=== PATIENT | female | born 1940 | race Caucasian/White ===

== ENCOUNTER 2016-05-30 14:35 | Inpatient (IN) | payer MEDICARE ==
[~2016-05-30] VITALS: Ht 167.6 cm; Wt 90.7 kg
[2016-05-30] MEDS ORDERED: ARICEPT5 MG PO (16:17)
[2016-05-30] MEDS ORDERED: KLONOPIN1 MG PO (16:17)
[2016-05-30] MEDS ORDERED: KLONOPIN0.5 MG PO (16:17)
[2016-05-30] MEDS ORDERED: CYMBALTA30 MG PO (16:18)
[2016-05-30] MEDS ORDERED: PEPCID20 MG PO (16:18)
[2016-05-30] MEDS ORDERED: NEURONTIN 400400 MG PO (16:19)
[2016-05-30] MEDS ORDERED: GLIMEPIRIDE1 MG PO (16:20)
[2016-05-30] MEDS ORDERED: ISOSORBIDE MONO30 M1 PO (16:22)
[2016-05-30] MEDS ORDERED: ACIDOPHILUS LAC1 CAP PO (16:23)
[2016-05-30] MEDS ORDERED: MELATONIN 3 MG1 TAB PO (16:24)
[2016-05-30] MEDS ORDERED: LISINOPRIL10 MG PO (16:24)
[2016-05-30] MEDS ORDERED: MOBIC7.5 MG PO (16:24)
[2016-05-30] MEDS ORDERED: MIRALAX17 GM PO (16:26)
[2016-05-30] MEDS ORDERED: SENNA PLUS TA1 UDTAB PO (16:26)
[2016-05-30] MEDS ORDERED: ZOCOR10 MG PO (16:27)
[2016-05-30] MEDS ORDERED: BUTRANS1 EAC1 TRANSDERM (16:28)
[2016-05-30] MEDS ORDERED: ACETAMINOPHEN500 M1 PO (16:29)
[2016-05-30] MEDS ORDERED: HYDROCODON-ACE1 EAC7 PO (16:30)
[2016-05-30] MEDS ORDERED: ULTRAM50 MG PO (16:31)
[2016-05-30] MEDS ORDERED: ZOFRAN4 MG PO (16:32)
[2016-05-30] MEDS ORDERED: PROAIR HFA8.5 GM INH (16:32)
--- NOTE | 2016-05-30 17:08 | NUR ---
PT WAS ADMITTED TO HALF-WAY FROM [facility] FOR INCREASED COMBATIVENSS. PT HITTING, KICKING, AND SPITTING ON STAFF AT [place]. CALLED PT'S SON ROXANNE SMITH WHO IS HER GUARDIAN, AND HE GAVE CONSENT FOR TREATMENT. CODE STATUS ADDRESSED AND PT IS A FULL CODE. [place] CODE STATUS IS INCORRECT PER SON. OXYGEN APPLIED TO PT NC 2 LITERS. SON REPORTED THAT THE PT FELL LAST NIGHT AT THE FACILITY. FALL PRECAUTIONS INITIATED. WILL CONTINUE TO MONITOR AND CONTINUE WITH PLAN OF CARE.
[2016-05-30 18:43] LABS: BASOPHILS 0.3 % (0.0-2.0); EOSINOPHILS 2.4 % (0-7); HEMATOCRIT 40.4 % (36.0-48.0); HEMOGLOBIN 11.7 g/dL (12-16); IMMATURE GRANULOCYTES 0.2 % (0-5); LYMPHOCYTES 27.9 % (15-50); MCH 29.7 pg (26.0-34.0); MCV 102.5 fL (80.0-100.0); MEAN PLATELET VOLUME 9.5 fL (7.4-10.4); MONOCYTES 9.6 % (2-11); NEUTROPHILS 59.6 % (40-80); PLATELET COUNT 196 10x3/uL (130-400); RBC 3.94 10x6/uL (4.00-5.40); RDW 12.7 % (11.5-14.5); WBC 6.2 10x3/uL (4.8-10.8)
[2016-05-30 18:55] LABS: HEMOGLOBIN A1C 7.5 % (4.8-6.0)
[2016-05-30 18:59] VITALS: BP 142/74
[2016-05-30 19:00] VITALS: BP 154/81
[2016-05-30 19:46] LABS: ALBUMIN 2.9 g/dL (3.4-5.0); BILIRUBIN - TOTAL 0.3 mg/dL (0.2-1.3); CALCIUM 9.2 mg/dL (8.5-10.1); CHOL - HDL RATIO 3.7 ratio (2.3-4.1); CREATININE - SERUM 0.8 mg/dL (0.6-1.3); PROTEIN - SERUM 6.6 g/dL (6.4-8.2); THYROID STIMULATING HORMONE 3.47 uIU/mL (0.36-3.74)
[2016-05-30 20:00] LABS: ANION GAP 1.8 mmol/L (8-16); CARBON DIOXIDE 48.1 mmol/L (21.0-32.0); POTASSIUM - SERUM 2.9 mmol/L (3.5-5.1)
[2016-05-30 21:25] VITALS: BP 154/81
--- NOTE | 2016-05-31 00:44 | NUR ---
B) Recieved wilnermarti in her room, alert and oriented X 3, sleeping on and off, calm and cooperative with assessment, I) Administered perscribed medications, PRN Abbott given for gereralized pain , R) Medication copliant, resting now quietly now, P) Continue plan of care, continue to monitor.
--- NOTE | 2016-05-31 01:55 | NUR ---
PATIENT GIVEN POTASIUM 40 mEQ PO FOR LOW POTASIUM.
[2016-05-31 06:55] LABS: CALCIUM 9.6 mg/dL (8.5-10.1); CREATININE - SERUM 0.8 mg/dL (0.6-1.3)
[2016-05-31 07:24] LABS: ANION GAP 0.7 mmol/L (8-16); CARBON DIOXIDE 48.8 mmol/L (21.0-32.0); POTASSIUM - SERUM 3.5 mmol/L (3.5-5.1)
[2016-05-31 08:30] VITALS: BP 132/56
--- NOTE | 2016-05-31 11:48 | NUR ---
Pt is alert and oriented to person, place. Not oriented to time or situation. Pt is negative, manipulative, helpless, hopeless this am. Didn't want to get out of bed stating "I'm sick". Medication given as ordered. Redirection given as needed. Will continue to monitor and continue plan of care.
[2016-05-31 12:33] LABS: APPEARANCE HAZY (CLEAR); BILIRUBIN NEGATIVE (NEGATIVE); COLOR YELLOW (YELLOW); GLUCOSE 1000 mg/dL (NEGATIVE); KETONE NEGATIVE (NEGATIVE); LEUKOCYTE ESTERASE 2+ (NEGATIVE); NITRITE NEGATIVE (NEGATIVE); PROTEIN NEGATIVE (NEGATIVE); SPECIFIC GRAVITY 1.015 (1.005-1.020); UROBILINOGEN NORMAL (NORMAL)
[2016-05-31 12:35] LABS: BACTERIA MODERATE /hpf (NONE SEEN); MUCUS <1+ /lpf (NONE SEEN); RED CELLS - URINE 0-5 /hpf (0-5); WHITE CELLS - URINE >50 /hpf (0-5)
[2016-05-31 15:22] VITALS: Ht 167.6 cm; Wt 90.7 kg
--- NOTE | 2016-05-31 15:35 | NUR ---
1437 pt sitting in wheelchair, agitated. Ativan 0.5mg po given. 1508 Pt complaining of bilateral foot pain. Scheduled Neurontin po given. 1530 Pt states "I want to go to bed. I stay in bed all the time at home. 24 hours because I'm in pain."
[2016-05-31 20:27] VITALS: BP 131/73
--- NOTE | 2016-05-31 23:00 | NUR ---
PRN ATIVAN O.5 MG GIVEN FOR ANXIETY AT 2300.
--- NOTE | 2016-06-01 03:54 | NUR ---
B) Recieved sitting in the day room, alert and oriented to self and hospital, attention seeking and helpless with a negitive aditude, I) Administered perscribed medications, redirected as needed, R) medication compliant, cooperative with care and assessment P) Continue plan of care.
[2016-06-01 05:16] LABS: RAPID PLASMA REAGIN Non Reactive (Non Reactive)
[2016-06-01 06:15] LABS: VITAMIN D 25 HYDROXY 17.8 ng/mL (30.0-100.0)
[2016-06-01 09:17] LABS: FOLATE (FOLIC ACID) - SERUM >20.0 ng/mL (>3.0)
[2016-06-01 09:40] VITALS: BP 132/68
--- NOTE | 2016-06-01 13:30 | NUR ---
B) PATIENT IS AWAKE AND SHE IS HAVING INTERMITTANT CONFUSION, SHE IS NEGATIVE AND SAYS WE ARE MISTREATING HER, SHE IS NOT HAPPY ABOUT ANYTHING. SHE REFUSES TO ROLL OR STAND OR HELP WITH ANY ASSIST FOR HERSELF. I) PROVIDE PRESCRIBED MEDS, REDIRECT TO A POSITIVE THOUGHT WITH EVERY NEGATIVE COMMENT. R) PATIENT IS COMPLIANT WITH MEDS. P) CONTINUE PLAN OF CARE.
--- NOTE | 2016-06-01 15:57 | NUR ---
C/O GENERALIZED PAIN /10. "WORST PAIN I'VE EVER FELT. ALSO C/O NAUSEA. PRN TRLENOL AND ZOFRAN ADMINISTERED PER ORDERS.
[2016-06-01 19:30] VITALS: BP 143/71
--- NOTE | 2016-06-02 04:08 | NUR ---
PATIENT RECIEVED IN 1136, LAYING ON THE BED. ORIENTED TO SELF, AND SITUATION. NO AGGRESSION, BUT SHOWING SOME AGITATION. CALM AND COMPLIANT WITH MEDICATION. BED LOW. SIDE RAILS UP X2. CONTINUE TO MONITOR
[2016-06-02 08:27] VITALS: BP 152/74
--- NOTE | 2016-06-02 09:42 | PSY ---
PATIENT NAME:ALIYAH SMITH MEDICAL RECORD: [id number] : 42 LOCATION:[facility] ADMISSION DATE: 05/30/16 ACCOUNT: [id number] PSYCHIATRIC EVALUATION DATE OF EVALUATION: 05/31/16 Initial Psychiatric Workup IDENTIFYING DATA: This is the first Group Home admission for this 75-year-old single white female. This patient is a resident of [facility]. HISTORY OF PRESENT ILLNESS: This patient had been exhibiting agitated behavior. She was kicking at staff's and spitting at them. Evidently, this agitated and combative behavior has been intermittent. She had recently been receiving routine pain medications, which the facility had tapered. The patient does have a number of medical comorbidities including COPD, hypertension, arthritis and GERD. She is being treated for depression and anxiety as well as early dementia. CURRENT MEDICATIONS: Included Aricept, Cymbalta and Klonopin. Because of worsening agitation and combativeness. The patient was admitted. PAST MEDICAL HISTORY: See above. ALLERGIES: THE PATIENT IS LISTED BEING ALLERGIC TO SULFONAMIDE ANTIBIOTICS AND ASPIRIN. The patient is evidently oxygen dependent. She does use supplemental oxygen at the present time. She also has a history of insulin-dependent diabetes mellitus. FAMILY HISTORY: Noncontributory. SOCIAL HISTORY: The patient is a longterm resident. She has a son that is involved in her care. There are no substance abuse issues that are noted. MENTAL STATUS: On exam, the patient is seated in a wheelchair. She is fairly cooperative. Mood is slightly anxious. Affect is brittle. Speech tends to be tangential. Content of thought is focused on somatic concerns. On sensorium testing, the patient is oriented to person, place, month, and year. Remote and intermediate recall seemed intact. Concentration is somewhat poor. DIAGNOSTIC IMPRESSION: AXIS I: Major depressive disorder with somatic features, possible early dementia. AXIS II: Deferred. AXIS III: Hypertension, gastroesophageal reflux disease, osteoarthritis, chronic obstructive pulmonary disease, type 1 diabetes. AXIS IV: Moderate. AXIS V: 36. PLAN: 1. We will adjust medications as indicated. 2. Supportive therapy. 3. Coordinate with referring facility and family regarding aftercare. TRANSINT:[id number] Voice Confirmation ID: [id number] DOCUMENT ID: [id number] ELODIA SHIPELY, ÁLVARO Anton MD at 0942 CC: [id number] DICTATION DATE: 05/31/16 1152 FILES SUPERVISOR: 05/31/16 1226 ADM IN [facility] [address] [id number]
--- NOTE | 2016-06-02 09:42 | PN ---
PATIENT:ALIYAH SMITH MEDICAL RECORD: [id number] LOCATION:[facility] ADMISSION DATE: 05/30/16 PROGRESS NOTE DATE OF SERVICE: 06/01/2016 SUBJECTIVE: No new complaint. OBJECTIVE: Staff reports the patient is rather attention-seeking, but poorly cooperative. She has to be redirected from time to time. She is tolerating her medications reasonably well. On exam, mood is somewhat irritable. Affect is shallow. Speech is tangential. Content of thought focuses only on somatic concerns. Sensorium shows no change. ASSESSMENT: No change in diagnosis. PLAN: 1. Maintain current medications. 2. Continue supportive therapy. TRANSINT:[id number] Voice Confirmation ID: [id number] DOCUMENT ID: [id number] ÁLVARO CLIFTON III, MD at 0942 CC: [id number] DICTATION DATE: 06/01/16 1303 HYDROGEN TREATER: 06/01/16 1557 ADM IN [place] [id number] [id number]
--- NOTE | 2016-06-02 13:32 | NUR ---
(B)RECEIVED PATIENT LAYING IN THE BED. ORIENTED TO SELF, DAY AND MONTH HOWEVER THOUGHT SHE WAS AT [facility]. RELATES "CRAZY HOUSE I GUESS." PATIENT IN DENIAL OF BEHAVIORS LEADING TO HOSPITALIZATION. O2 AT 2L/MIN PER NC IN USE. ASKING FOR A DIFFERENT CANNULA DUE TO THE ONE SHE HAS NOT STAYING IN. PATIENT HAS FREQUENT REQUEST FOR ASSISTANCE. (I)ADMINISTER MEDS AND MONITOR COMPLIANCE. MONITOR BEHAVIORS AND REDIRECT FOR SPITTING, KICKING AND HITTING AT STAFF. (R)MED COMPLIANT. NO AGGRESSIVE BEHAVIORS OBSERVED. CONTINUES TO LAY AND CALL FOR STAFF TO ASSIST WITH ALL CARE. (P)CONTIUE POC AND MAINTAIN FALL PRECAUTIONS.
[2016-06-02 19:30] VITALS: BP 131/62
--- NOTE | 2016-06-03 00:41 | NUR ---
B) Recieved patient in bed in the day area, alert and oriented to self. demanding at times, calm most of the time, cooperative with care, I) Administered perscribed medications, redirected as needed, R) Medication compliant, resting now quietly, P) Continue plan of care, continue to monitor.
[2016-06-03 07:00] VITALS: BP 168/74
--- NOTE | 2016-06-03 07:30 | NUR ---
RECEIVED IN BED THIS AM.IS ORIENTED X 3 BUT HAS SOME CONFUSION.GENERALIZED WEAKNESS PRESENT.HAS TO BE ENCOURAGED TO ASSIST WITH TURNING AND HELPING SELF.FREQUENTLY ASK FOR ASSISTANCE.WILL CONTINUE WITH PLAN OF CARE,MONITOR FOR SAFETY,AND CHANGES.
[2016-06-03 19:30] VITALS: BP 121/86
--- NOTE | 2016-06-03 21:22 | NUR ---
B) PATIENT AWAKE AND ALERT, FSBS 215, 2 UNITS REGULAR INSULIN PROVIDED IN RIGHT LOWER ABDOMEN. PATIENT IS LAYING IN BED AND SHE REQUESTS NAUSEA MEDICINE, ALTHOUGH, PATIENT IS NOT NAUSEATED, SHE IS REQUESTING A SNACK. SHE ALSO REQUESTS ATIVAN, SHE SAYS SHE IS NERVOUS. PATIENT DOES NOT AMBULATE, SHE CAN ROLL SELF IN BED WOTH PROMPTS. I) PROVIDE PRESCRIBED MEDS, REDIRECT TO BE INDEPENDENT POSSIBLE. R) PATIENT HAS NOT MADE ANY NEGATIVE COMMENTS TONIGHT, SHE IS DEPRESSED AND CAN BE MANIPULATIVE. P) CONTINUE PLAN OF CARE.
--- NOTE | 2016-06-04 08:51 | PN ---
PATIENT:ALIYAH SMITH MEDICAL RECORD: [id number] LOCATION:[facility] ADMISSION DATE: 05/30/16 PROGRESS NOTE DATE OF SERVICE: 06/02/2016 SUBJECTIVE: No new complaint. OBJECTIVE: The patient has shown some improvement over the last 24, she has not been a particular behavioral problem. She has been taking her medications as prescribed. On exam, mood is euthymic. Affect remains rather shallow. Speech is somewhat terse. Content of thought focuses on somatic concerns. Sensorium is unchanged. ASSESSMENT: No change in diagnosis. PLAN: 1. Maintain current medication. 2. Continue supportive therapy. TRANSINT:[id number] Voice Confirmation ID: [id number] DOCUMENT ID: [id number] ÁLVARO CLIFTON III, MD at 0851 CC: [id number] DICTATION DATE: 06/02/16 1108 LAUNDRY SUPERVISOR: 06/02/16 1130 ADM IN [place] [id number] [place] [address]
[2016-06-04 09:12] VITALS: BP 138/72
[2016-06-04] MEDS ORDERED: LISINOPRIL10 MG PO (12:18)
[2016-06-04] MEDS ORDERED: PEPCID20 MG PO (12:19)
[2016-06-04] MEDS ORDERED: GLIMEPIRIDE4 MG PO (12:20)
[2016-06-04] MEDS ORDERED: CARAFATE1 G/10 ML PO (12:20)
--- NOTE | 2016-06-04 15:50 | NUR ---
Alert and oriented to name and place, cooperative with care. Administer medications and monitor compliance. Redirect for any inappropriate behavior. Compliant with medications. No aggressive behavior. Compliant with getting put of bed to javier chair this am. O 2 2l/nc, respirations easy. No behavior changes. Pleasant in good behavior control.
[2016-06-04 20:23] VITALS: BP 121/64
--- NOTE | 2016-06-04 21:36 | NUR ---
RECEIVED IN BEDROOM. YELLING IN ROOM. ATTENTION SEEKING. RINGING IBARRA CONSTANTLY. O2@2L VIA NC. COOPERATIVE WITH CARE AND ASSESSMENT. ENCOURAGE TO TAKE PM MEDS. THOUGHT NURSE HAD PUT SOMETHING INTO HER WATER. REDIRECTED AND REORIENTED AND TOOK PM MEDS ORDERED. RESTING IN BED EYES CLOSED AT THIS TIME. CONTINUE PLAN OF CARE
[2016-06-05 08:13] VITALS: BP 126/70
--- NOTE | 2016-06-05 08:25 | NUR ---
B.) Recieved patient in bed, alert and oriented times three, verbalized that she is aware she is returniung to assisted today. I.) Administer prescribed medications and monitor compliance. Redirect for any inappropriate behavior. R.) Patient is in good behavior control, calm and cooperative with care with no aggression toward staff. Follow directions without any behavior. Respirations easy with ocygen 2l/NC in place. P.) Plan to continue with planned discharge today.
--- NOTE | 2016-06-05 12:46 | NUR ---
LATE ENTRY: PT WAS DISCHARGED VIA EMT TO [facility]. REPORT CALLED TO FACILTIY. VSS. ALL BELONGINGS SENT WITH THE PT. NO AGGRESSION NOTED. CALM, COOPERATIVE WITH CARE. MED COMPLIANT. PT WAS TAKEN OUT OF UNIT VIA STRETCHER. DISCHARGE PAPERWORK SENT WITH EMS AND COPY FAXED TO FACILITY.
--- NOTE | 2016-06-06 08:11 | DS ---
PATIENT:ALIYAH SMITH :42 MEDICAL RECORD: [id number] DISCHARGE SUMMARY ADMISSION DATE: 05/30/16 DISCHARGE DATE: 06/05/16 DATE OF ADMISSION: 05/30/2016 DATE OF DISCHARGE: 06/05/2016 HISTORY OF PRESENT ILLNESS: First Retirement admission for this 75-year-old single white female who is a resident at [facility]. She had been exhibiting agitated behavior and was combative with staff. She had a previous diagnosis of depression as well as early dementia. For further details, please see previously dictated history. COURSE IN THE HOSPITAL: The patient was seen in consultation by Dr. Mora. He noted the presence of hypertension, type 2 diabetes, COPD, fibromyalgia, systolic heart failure, hyperlipidemia, obstructive sleep apnea, osteoarthritis, GERD. From a medication standpoint, the patient was treated with Seroquel 25 mg at bedtime for control of her agitation. She responded quite well to this. Beyond this, the patient was treated with her routine medications, which include Amaryl, Carafate, lisinopril, Pepcid, MiraLax, Mobic, Imdur, Floranex, Cymbalta 60 mg daily, Klonopin 0.5 mg daily, Zocor, Senokot, melatonin, insulin, Neurontin, Aricept 5 mg at bedtime. The patient did well on the above regimen of medication. She tended to be somewhat passively uncooperative, but showed no further agitation or combativeness. By the time of discharge, the patient was felt to be stable enough to return to the intermediate environment. FINAL DIAGNOSES: AXIS I: Alzheimer dementia with behavioral disturbance, secondary to depression. AXIS II: Deferred. AXIS III: Hypertension, type 2 diabetes, chronic obstructive pulmonary disease, fibromyalgia, hyperlipidemia, osteoarthritis, obstructive sleep apnea, gastroesophageal reflux disease. AXIS IV: Moderate. AXIS V: 40. PLAN: 1. The patient is discharged on current medication. 2. Diet and activities as tolerated. 3. Follow up through primary care physician at the intermediate. TRANSINT:[id number] Voice Confirmation ID: [id number] DOCUMENT ID: [id number] ÁLVARO CLIFTON III, MD at 0811 CC: [id number] DICTATION DATE: 06/05/16 1216 STRAW HAT MACHINE OPERATOR: 06/06/16 0159 DIS IN 06/05/16 [facility] [address] [facility] [place] [address]
--- NOTE | 2016-06-06 08:11 | PN ---
PATIENT:ALIYAH SMITH MEDICAL RECORD: [id number] LOCATION:[facility] ADMISSION DATE: 05/30/16 PROGRESS NOTE DATE OF SERVICE: 06/04/2016 SUBJECTIVE: No new complaint. OBJECTIVE: Staff notes the patient continues to be manipulative. Aside from this, no combativeness, no suicidal ideation. The patient is tolerating medications well. Vital signs are stable. On exam, mood euthymic. Affect rather constricted. Speech terse. Content of thought focuses only on somatic concerns. Sensorium shows no change. ASSESSMENT: No change in diagnosis. PLAN: 1. Continue all current medications. 2. Anticipate discharge tomorrow. TRANSINT:[id number] Voice Confirmation ID: [id number] DOCUMENT ID: [id number] ÁLVARO CLIFTON III, MD at 0811 CC: [id number] DICTATION DATE: 06/04/16 1227 SPRAY PAINTER HELPER: 06/04/16 1946 DIS IN 06/05/16 [id number] [place] [address]
== END 2016-06-05 12:50 | DRG 57 ==
LOC: D.PSYCH 14:35
PROVIDERS: Family Medicine; ADMIT Psychiatry & Neurology Psychiatry
DX: G30.9 Alzheimer's disease, unspecified (principal); F02.81 Dementia in other diseases classified elsewhere, unspecified severity, with behavioral disturbance; I50.22 Chronic systolic (congestive) heart failure; F41.8 Other specified anxiety disorders; E11.9 Type 2 diabetes mellitus without complications; I11.0 Hypertensive heart disease with heart failure; E78.5 Hyperlipidemia, unspecified; J44.9 Chronic obstructive pulmonary disease, unspecified; M19.90 Unspecified osteoarthritis, unspecified site; G47.33 Obstructive sleep apnea (adult) (pediatric); K21.9 Gastro-esophageal reflux disease without esophagitis; M79.7 Fibromyalgia; K59.00 Constipation, unspecified; L82.1 Other seborrheic keratosis